=== PATIENT | female | born 1955 | race Caucasian/White ===

== ENCOUNTER 2021-03-23 16:47 | Emergency (ER) | payer BC, OTHER ==
[~2021-03-23] VITALS: Ht 162.6 cm; Wt 65.0 kg
[2021-03-23] MEDS ORDERED: HYDROcodone/APAP 5/325MG 1 TAB TABLET PO ONE (17:00)
[2021-03-23 17:11] VITALS: BP 143/83
[2021-03-23] MEDS: oxyCODONE/APAP 5/325 1 TAB TABLET PO ONE (17:15)
--- NOTE | 2021-03-23 17:16 | PHYS DOC ---
General Adult EDM: Chief Complaint: ANKLE PROBLEM HPI: HPI: Patient is a 65-year-old female who presents to the emergency department for left ankle pain and swelling. Patient reports that most of her pain is located to the lateral aspect of her left ankle. She rates it 9 out of 10. She did not take anything prior to arrival. She reports that the pain started after she tripped over her cat around 1615 and fell approximately 4 inches and twisted her ankle. She denies hitting her head or loss of consciousness. She reports that she is unable to bear weight or ambulate. Review of Systems: Review of Systems: Musculoskeletal: See HPI Integument: See HPI Neurologic: See HPI Current Medications: Current Meds: Current Medications Medications (Trade) Dose Ordered Sig/Taras Start Time Stop Time Status Last Admin Dose Admin Acetaminophen/ Hydrocodone Bitart (Lortab 5/325) 1 tab 1X ONCE 03/23/21 17:00 03/23/21 17:01 UNV Physical Exam: PE: Constitutional: Well developed, well nourished, no acute distress, non-toxic appearance. [] HENT: Normocephalic, atraumatic, bilateral external ears normal, oropharynx moist, no oral exudates, nose normal. [] Eyes: PERRL, EOMI, conjunctiva normal, no discharge. [] Neck: Normal range of motion, no stridor Cardiovascular: Normal peripheral perfusion Lungs & Thorax: Normal work of breathing, no tachypnea Abdomen: Soft and flat Skin: Warm, dry, no erythema, no rash. [] Back: Normal range of motion Extremities: No tenderness, no cyanosis, no clubbing, ROM intact, no edema. Ankle: Swelling and pain noted to the lateral aspect of left ankle no obvious deformity, limited flexion due to pain, no wounds, neuro intact Neurologic: Alert and oriented X 3, normal motor function, normal sensory function, no focal deficits noted. [] Psychologic: Affect normal, judgement normal, mood normal. [] EKG: EKG: [] Radiology/Procedures: Radiology/Procedures: []PROCEDURE: ANKLE LEFT 3V XR EXAM OF ANKLE_LEFT 3V Clinical indications: Reason: fall, ankle pain / Spl. Instructions: / History: Findings: There is a small dorsal avulsion fracture of the proximal navicular bone. No fracture is seen involving the mortise ankle joint. The mortise ankle joint is intact. No lytic process is seen. IMPRESSION: Small dorsal avulsion fracture of the proximal navicular bone. Electronically signed by: Edward Quan MD (03/23/2021 5:26 PM) [id number] DICTATED AND SIGNED BY: EDWARD QUAN MD DATE: 03/23/21 4613 CC: JUAN BUENO APRN; WILFREDO SOLITARIO ~MTH0 0 Heart Score: C/O Chest Pain: N/A Risk Factors: Risk Factors: DM, Current or recent (<one month) smoker, HTN, HLP, family history of CAD, obesity. Risk Scores: Score 0 - 3: 2.5% MACE over next 6 weeks - Discharge Home Score 4 - 6: 20.3% MACE over next 6 weeks - Admit for Clinical Observation Score 7 - 10: 72.7% MACE over next 6 weeks - Early Invasive Strategies Course & Med Decision Making: Course & Med Decision Making Pertinent Labs and Imaging studies reviewed. (See chart for details) [] Patient presents to the emergency department for left ankle pain. An x-ray was performed that showed well avulsion fracture of the navicular bone.. Patient's pain treated in the emergency department. Patient was placed in a short leg posterior splint and was given crutches as she should not bear weight. Neuro intact pre and post splint placement. Patient tolerated procedure. Patient advised to take ibuprofen or naproxen for pain and follow-up with orthopedic clinic. Educated on RICE. I discussed with patient all findings and diagnostic testing as well as the need to follow-up with PCP for further evaluation and treatment or return to the ER if any new or worsening symptoms. Strict return precautions were also discussed at length. Patient voiced understanding and agreement with the plan. Patient is hemodynamically stable at the time of disposition. Dragon Disclaimer: Dragon Disclaimer: This electronic medical record was generated, in whole or in part, using a voice recognition dictation system. Departure Departure: Impression: Primary Impression: Ankle fracture Qualified Codes: S82.892A - Other fracture of left lower leg, initial encounter for closed fracture Disposition: HOME / SELF CARE / HOMELESS Condition: GOOD Referrals: WILFREDO SOLITARIO (PCP) Patient Instructions: Ankle Fracture Additional Instructions: [facility]opedic group: [phone]. You were seen in the emergency department for ankle pain after falling. The x- ray shows a fracture. You had a splint placed to help with pain and healing. You were given crutches and crutch training. You need to use these crutches at all times as you should not bear weight on this leg. You will need to follow-up with the orthopedic doctors in the orthopedic clinic as soon as possible, you must call them tomorrow to set up a follow-up appointment. Please see attached information regarding follow-up physician. You should perform range of motion exercises to prevent stiffness of your joints. Splints help with the pain and can promote healing but immobility can cause chronic pain over time. Please refer to these attached instructions regarding range of motion exercises. Keep the splint clean and dry avoid getting it wet. If the splint gets wet you will need to have it replaced. You should use ice and elevation to help with the swelling and pain. For the first 24 hours apply ice 20 minutes on 20 minutes off 4 times per day. Ensure that ice is in a plastic bag as to not get the splint wet. You may take NSAID medications (Tylenol, ibuprofen, naproxen) to help with the pain. Please return to the emergency department if you develop any of the following symptoms: Increasing pain that does not improve with treatments. New numbness or tingling Warmth, redness, skin discoloration, skin breakdown, drainage from under splint or near splinted area. Increasing inability to move your extremity or digits. Foul odor coming from splint Fevers or chills Nausea or vomiting Persistent lightheadedness We would be happy to see you for any other concerning symptoms regarding your splinted extremity. JUAN BUENO HEEL PADDER Mar 23, 2021 17:16
--- NOTE | 2021-03-23 17:28 | RAD ---
XR EXAM OF ANKLE_LEFT 3V Clinical indications: Reason: fall, ankle pain / Spl. Instructions: / History: Findings: There is a small dorsal avulsion fracture of the proximal navicular bone. No fracture is s een involving the mortise ankle joint. The mortise ankle joint is intact. No lytic process is seen. IMPRESSION: Small dorsal avulsion fracture of the proximal navicular bone. Electronically signed by: Bladimir Quan MD (03/23/2021 5:26 PM) [id number]
[2021-03-23] MEDS ORDERED: OXYC1TAB15 PO (18:29)
[2021-03-23] MEDS ORDERED: CRUT1EAC3 MC (18:29)
== END 2021-03-23 18:59 | disposition home or self-care (01) ==
LOC: ER 16:47
DX: S82.892A Other fracture of left lower leg, initial encounter for closed fracture (principal); W01.0XXA Fall on same level from slipping, tripping and stumbling without subsequent striking against object, initial encounter; Y93.89 Activity, other specified; Y92.89 Other specified places as the place of occurrence of the external cause; Y99.8 Other external cause status
CPT/HCPCS: 29515; 73610; 99283-25